=== PATIENT | male | born 1965 | race Hispanic/Latino ===

== ENCOUNTER 2018-04-26 20:34 | Emergency (ER) | payer OTHER ==
--- NOTE | 2018-04-26 21:32 | RAD ---
RIGHT ANKLEK THREE VIEWS: History: Fall, right ankle injury. FINDINGS: Comminuted nondisplaced fracture involves the distal fibula at and just above the level of the ankle mortise. Talar dome and ankle mortise are maintained. Medial malleolus is intact. Small Achilles and plantar heel spurs. IMPRESSION: Nondisplaced Alexander class C fracture right lateral malleolus. POS: [facility]
== END 2018-04-26 22:00 | disposition home or self-care (01) ==
LOC: SCSER 20:34
DX: S82.64XA Nondisplaced fracture of lateral malleolus of right fibula, initial encounter for closed fracture (principal); I10 Essential (primary) hypertension; E11.9 Type 2 diabetes mellitus without complications; Z79.84 Long term (current) use of oral hypoglycemic drugs; Z79.899 Other long term (current) drug therapy; W19.XXXA Unspecified fall, initial encounter
CPT/HCPCS: 27786